=== PATIENT | female | born 1945 | race Caucasian/White ===

== ENCOUNTER 2019-03-09 09:21 | Day surgery (SDC) | payer MEDICARE ==
[~2019-03-09] VITALS: Ht 147.3 cm; Wt 51.2 kg
[~2019-03-09 09:21] MED LIST: BENZ100A PO; DIPH12.5EL PO; HYDROCORTISON28.4 G2 TOP; [UNRECOGNIZED DRUG - REMARK]
--- NOTE | 2019-03-09 10:05 | NUR ---
History, Chart, Medications and Allergies reviewed before start of procedure. Patient confirms NPO status and agrees with scheduled surgery. Lungs clear T/O to Auscultation. Pre-Op teaching done. Pt verbalizes understanding. Patient States Post-Procedure ride home has been arranged. PATIENT DID NOT HAVE ANY GLASSES, CONTACTS, JEWELRY, OR HEARING DEVICES AT ADMIT.
--- NOTE | 2019-03-09 10:17 | NUR ---
PATIENT VOIDED UPON ADMIT TO [facility].
--- NOTE | 2019-03-09 14:35 | NUR ---
"DAY SURGERY RN | REPORT TO ANA PEARSON"
--- NOTE | 2019-03-09 15:17 | NUR ---
"DAY SURGERY RN | DISCHARGE VSS. A/O. STAND BY ASSIST. NO ISSUES. PATIENT UP TO BATHROOM TWICE. DISCHARGE INSTRUCTIONS AND RX GIVEN TO PATIENT WITH FAMILY PRESENT. NO OTHER ISSUES. TAKEN IN WHEELCHAIR TO FRONT ENTRANCE BY THIS RN."
== END 2019-03-09 23:21 | disposition home or self-care (01) ==
LOC: ORSCMMR 09:21 → ORD 11:00 → ORSCMMR 23:21
PROVIDERS: Surgery
PROC: 8E0W4CZ Robotic Assisted Procedure of Trunk Region, Percutaneous Endoscopic Approach (ICD-10-PCS; principal; 2019-03-09 11:00)
PROC: 0YU64JZ Supplement Left Inguinal Region with Synthetic Substitute, Percutaneous Endoscopic Approach (ICD-10-PCS; principal; 2019-03-09 11:00)
DX: K40.90 Unilateral inguinal hernia, without obstruction or gangrene, not specified as recurrent (principal); E03.9 Hypothyroidism, unspecified; J45.909 Unspecified asthma, uncomplicated
CPT/HCPCS: 49650; S2900; A9270-GY; C1781; J0690; J1100; J2405; J2704; J2710; J3010; J7120

== ENCOUNTER → 2019-09-13 | Outpatient (CLI) | payer OTHER | END | disposition home or self-care (01) | LOC: LAB 10:56 → LAB SHORT 10:56 | DX: R35.0 Frequency of micturition (principal); R30.9 Painful micturition, unspecified | CPT/HCPCS: 87086 ==

== ENCOUNTER 2020-10-25 17:22 | Emergency (ER) | payer OTHER ==
[~2020-10-25] VITALS: Ht 147.3 cm; Wt 52.2 kg
== END 2020-10-25 18:26 | disposition home or self-care (01) ==
LOC: ER 17:22
DX: H92.01 Otalgia, right ear (principal); H93.13 Tinnitus, bilateral; Z88.8 Allergy status to other drugs, medicaments and biological substances; Z79.899 Other long term (current) drug therapy
CPT/HCPCS: 99282; A9270

== ENCOUNTER 2022-07-21 18:38 | Emergency (ER) | payer OTHER ==
[~2022-07-21] VITALS: Ht 147.3 cm; Wt 54.4 kg
[2022-07-21 19:17] LABS: BASOPHILS ABSOLUTE AUTO 0.05 K/mm3 (0.00-0.23); BASOPHILS PERCENT AUTO 1 % (0-2); EOSINOPHILS ABSOLUTE AUTO 0.14 K/mm3 (0.00-0.68); EOSINOPHILS PERCENT AUTO 2 % (0-6); Hematocrit 41.3 % (33.0-51.0); Hemoglobin 13.7 g/dL (11.5-16.0); IMMATURE GRAN ABSOLUTE AUTO 0.01 K/mm3 (0.00-0.10); IMMATURE GRAN PERCENT AUTO 0 % (0-1); LYMPHOCYTES ABSOLUTE AUTO 1.88 K/mm3 (0.84-5.20); LYMPHOCYTES PERCENT AUTO 30 % (21-46); MONOCYTES ABSOLUTE AUTO 0.64 K/mm3 (0.16-1.47); MONOCYTES PERCENT AUTO 10 % (4-13); Mean Corpuscular HGB 29.1 pg (26.0-34.0); Mean Corpuscular HGB Conc 33.2 g/dL (31.5-36.5); Mean Corpuscular Volume 88 fL (80-100); Mean Platelet Volume 9.5 fL (9.1-12.4); NEUTROPHILS ABSOLUTE AUTO 3.66 K/mm3 (1.96-9.15); NEUTROPHILS PERCENT AUTO 57 % (41-73); Platelet Count 224 K/mm3 (150-400); RDW Coefficient Variation 13.1 % (11.7-14.2); RDW Standard Deviation 42.1 fL (35.1-46.3); Red Blood Cell Count 4.71 M/mm3 (3.80-5.20); White Blood Cell Count 6.38 K/mm3 (4.00-11.30)
[2022-07-21 19:44] LABS: Albumin/Globulin Ratio 1.2 (0.8-1.8); Bilirubin, Total 0.3 mg/dL (0.1-1.0); Bun/Creatinine Ratio 29.5 (12.0-20.0); Calcium, Blood 9.4 mg/dL (8.5-10.1); Creatinine, Blood 0.58 mg/dL (0.40-1.00); Globulin, Blood 3.3 g/dL (2.2-4.0); Total Protein, Blood 7.3 g/dL (6.4-8.2)
[2022-07-22 00:07] LABS: Source, Urine Clean Catch
[2022-07-22 00:20] LABS: Bilirubin, Urine Neg (Neg); Blood, Urine 3+ (Neg); Glucose Qualitative, Urine Neg (Neg); Ketones, Urine Neg (Neg); Leukocyte Esterase, Urine 1+ (Neg); Nitrite, Urine Neg (Neg); Protein, Urine Neg (Neg); Urobilinogen, Urine NORM (Normal)
[2022-07-22 00:30] LABS: Appearance, Urine Clear (Clear); Color, Urine Pale Yellow (P-Yellow)
[2022-07-22 00:31] LABS: Bacteria Not Seen /hpf; Squamous Epithelial Cells Rare /hpf (Few); White Blood Cells, Urine 0-2 /hpf (0-5)
== END 2022-07-22 01:49 | disposition home or self-care (01) ==
LOC: ER 18:38
PROVIDERS: Emergency Medicine
DX: R10.11 Right upper quadrant pain (principal); R11.2 Nausea with vomiting, unspecified; Z88.8 Allergy status to other drugs, medicaments and biological substances; Z79.899 Other long term (current) drug therapy; K21.9 Gastro-esophageal reflux disease without esophagitis
CPT/HCPCS: 36415; 74177; 80053; 81001; 83690; 85025; 96374-59; 99284-25; A9270; J1885; Q9967

== ENCOUNTER 2022-11-19 07:53 | Day surgery (SDC) | payer OTHER ==
[~2022-11-19] VITALS: Ht 147.3 cm; Wt 51.5 kg
[2022-11-19 10:18] VITALS: BP 165/85
== END 2022-11-19 10:17 | disposition home or self-care (01) ==
LOC: ORSCSDS 07:53
PROVIDERS: Internal Medicine Gastroenterology
PROC: 0DJD8ZZ Inspection of Lower Intestinal Tract, Via Natural or Artificial Opening Endoscopic (ICD-10-PCS; principal; 2022-11-19 09:30)
PROC: 0DB68ZX Excision of Stomach, Via Natural or Artificial Opening Endoscopic, Diagnostic (ICD-10-PCS; principal; 2022-11-19 09:30)
PROC: 0DB58ZX Excision of Esophagus, Via Natural or Artificial Opening Endoscopic, Diagnostic (ICD-10-PCS; principal; 2022-11-19 09:30)
DX: K62.89 Other specified diseases of anus and rectum (principal); R13.10 Dysphagia, unspecified; R10.13 Epigastric pain; K59.00 Constipation, unspecified; R13.19 Other dysphagia; K63.89 Other specified diseases of intestine; K57.30 Diverticulosis of large intestine without perforation or abscess without bleeding; K64.4 Residual hemorrhoidal skin tags; K21.00 Gastro-esophageal reflux disease with esophagitis, without bleeding; J44.9 Chronic obstructive pulmonary disease, unspecified; Z87.19 Personal history of other diseases of the digestive system
CPT/HCPCS: 88305; 88341; 88342; J2704; J7120

== ENCOUNTER → 2023-08-20 | Outpatient (CLI) | payer OTHER | LOC: LAB 13:03 → LAB SHORT 13:03 | DX: K14.6 Glossodynia (principal) | CPT/HCPCS: 87081 ==

== ENCOUNTER 2024-02-15 18:33 | Emergency (ER) | payer OTHER ==
[~2024-02-15] VITALS: Ht 147.3 cm; Wt 50.8 kg
[2024-02-15] MEDS ORDERED: [UNRECOGNIZED DRUG - OTHER] PO (21:40)
[2024-02-15] MEDS ORDERED: HAIR, SKIN AND1 EAC3 (21:41)
[2024-02-15] MEDS ORDERED: POTA8 (21:41)
[2024-02-15 22:28] LABS: BASOPHILS ABSOLUTE AUTO 0.05 K/mm3 (0.00-0.23); BASOPHILS PERCENT AUTO 1 % (0-2); EOSINOPHILS ABSOLUTE AUTO 0.19 K/mm3 (0.00-0.68); EOSINOPHILS PERCENT AUTO 4 % (0-6); Hematocrit 39.9 % (33.0-51.0); IMMATURE GRAN ABSOLUTE AUTO 0.01 K/mm3 (0.00-0.10); IMMATURE GRAN PERCENT AUTO 0 % (0-1); LYMPHOCYTES ABSOLUTE AUTO 1.62 K/mm3 (0.84-5.20); LYMPHOCYTES PERCENT AUTO 30 % (21-46); MONOCYTES ABSOLUTE AUTO 0.46 K/mm3 (0.16-1.47); MONOCYTES PERCENT AUTO 9 % (4-13); Mean Corpuscular HGB 29.1 pg (26.0-34.0); Mean Corpuscular HGB Conc 32.6 g/dL (31.5-36.5); Mean Corpuscular Volume 89 fL (80-100); Mean Platelet Volume 10.5 fL (9.1-12.4); NEUTROPHILS ABSOLUTE AUTO 3.11 K/mm3 (1.96-9.15); NEUTROPHILS PERCENT AUTO 57 % (41-73); Platelet Count 269 K/mm3 (150-400); RDW Coefficient Variation 13.6 % (11.7-14.2); RDW Standard Deviation 44.7 fL (35.1-46.3); Red Blood Cell Count 4.47 M/mm3 (3.80-5.20); White Blood Cell Count 5.44 K/mm3 (4.00-11.30)
[2024-02-15 22:41] LABS: Albumin/Globulin Ratio 1.1 (0.8-1.8); Bilirubin, Total 0.3 mg/dL (0.1-1.0); Bun/Creatinine Ratio 31.4 (12.0-20.0); Calcium, Blood 9.8 mg/dL (8.5-10.1); Creatinine, Blood 0.67 mg/dL (0.40-1.00); Globulin, Blood 3.6 g/dL (2.2-4.0); Total Protein, Blood 7.6 g/dL (6.4-8.2)
[2024-02-15] MEDS ORDERED: NS 1,000 ML IV SCH (22:55)
[2024-02-16 01:49] VITALS: BP 156/72
[2024-02-16 01:52] LABS: Source, Urine Clean Catch
[2024-02-16 01:54] LABS: Bilirubin, Urine Neg (Neg); Blood, Urine 3+ (Neg); Glucose Qualitative, Urine Neg (Neg); Ketones, Urine Neg (Neg); Leukocyte Esterase, Urine 2+ (Neg); Nitrite, Urine Neg (Neg); Protein, Urine Neg (Neg); Urobilinogen, Urine NORM (Normal)
[2024-02-16 02:14] LABS: Appearance, Urine Clear (Clear); Color, Urine Pale Yellow (P-Yellow)
[2024-02-16 02:17] LABS: Bacteria Few /hpf; Red Blood Cells, Urine 0-2 /hpf (0-2); Squamous Epithelial Cells Few /hpf (Few)
[2024-02-16] MEDS ORDERED: Cephalexin Monohydrate 500 MG Cap PO ONE (03:10)
[2024-02-16] MEDS ORDERED: CEPH500 PO (03:10)
== END 2024-02-16 03:35 | disposition home or self-care (01) ==
LOC: ER 18:33
PROVIDERS: Emergency Medicine
DX: N39.0 Urinary tract infection, site not specified (principal); N28.1 Cyst of kidney, acquired; E27.9 Disorder of adrenal gland, unspecified; K21.9 Gastro-esophageal reflux disease without esophagitis; Z79.899 Other long term (current) drug therapy; Z88.0 Allergy status to penicillin; Z88.8 Allergy status to other drugs, medicaments and biological substances
CPT/HCPCS: 74177; 80053; 81001; 83605; 85025; 87086; 96360-59; 99284-25; A9270; J7030; Q9967